=== PATIENT | female | born 1940 | race Caucasian/White ===

== ENCOUNTER → 2018-08-14 | Outpatient (CLI) | payer MEDICARE, OTHER | END | disposition home or self-care (01) | LOC: CFH 11:00 | PROVIDERS: ATTEND Nurse Practitioner Family | DX: R05 Cough (principal); R06.89 Other abnormalities of breathing; M47.814 Spondylosis without myelopathy or radiculopathy, thoracic region; I89.8 Other specified noninfective disorders of lymphatic vessels and lymph nodes | CPT/HCPCS: 71046 ==

== ENCOUNTER → 2018-09-19 | Outpatient (CLI) | payer MEDICARE, OTHER | END | disposition home or self-care (01) | LOC: CFH 09:55 | PROVIDERS: ATTEND Nurse Practitioner Family | DX: Z12.31 Encounter for screening mammogram for malignant neoplasm of breast (principal) | CPT/HCPCS: 77063; 77067 ==

== ENCOUNTER 2019-06-13 13:24 | Emergency (ER) | payer MEDICARE, OTHER ==
[~2019-06-13] VITALS: Ht 157.5 cm; Wt 86.0 kg
[2019-06-13 14:30] LABS: MICROSCOPIC INDICATED
[2019-06-13 14:31] LABS: CULTURE INDICATED? YES
--- NOTE | 2019-06-13 14:40 | NUR ---
UPON ARRIVAL TO ROOM, PT TO XRAY VIA JODI
--- NOTE | 2019-06-13 14:52 | NUR ---
PT SENT BY URGENT CARE: LOW BACK PAIN, LEFT LEG PAIN. UC CONSIDERING R/O DVT
[2019-06-13] MEDS ORDERED: KETOROLAC 30 MG/1 ML IM ONE (15:00)
[2019-06-13] MEDS ORDERED: KETOROLAC 30 MG/1 ML ONE (15:24)
[2019-06-13 15:31] VITALS: BP 152/95
--- NOTE | 2019-06-13 15:31 | NUR ---
MEDICATED NOTED ON JUL FOR BACK AND LEG PAIN. AWAITING ULTRASOUND RESULTS.
--- NOTE | 2019-06-13 16:43 | NUR ---
UOB TO BATHROOM. STEADY GAIT, BENT OVER. STATES NO IMPROVEMENT IN PAIN SINCE MEDICATED PER MAR
[2019-06-13] MEDS ORDERED: HYDROcodone/APAP 5/325 TABLET PO ONE (17:00)
[2019-06-13] MEDS ORDERED: HYDROcodone/APAP 5/325 TABLET ONE (17:16)
--- NOTE | 2019-06-13 17:36 | NUR ---
AFTER FURTHER MEDICATED FOR PAIN, GIVEN DISCHARGE AND TO DISCHARGE WINDOW WITH VIA W/C
== END 2019-06-13 17:39 | disposition home or self-care (01) ==
LOC: ED 14:21
DX: M54.42 Lumbago with sciatica, left side (principal); I10 Essential (primary) hypertension; M79.662 Pain in left lower leg
CPT/HCPCS: 72110; 81001; 87086; 93971; 96372; 99284; J1885

== ENCOUNTER 2019-07-04 09:17 | Outpatient (CLI) | payer MEDICARE, OTHER | END 2019-07-04 23:59 | disposition home or self-care (01) | LOC: CFH 09:17 | PROVIDERS: ATTEND Nurse Practitioner Family | DX: R09.89 Other specified symptoms and signs involving the circulatory and respiratory systems (principal) | CPT/HCPCS: 71046 ==

== ENCOUNTER → 2019-10-24 | Outpatient (CLI) | payer MEDICARE, OTHER | END | disposition home or self-care (01) | LOC: CFH 08:56 → EDSTATUS 09:30 | PROVIDERS: ATTEND Nurse Practitioner Family | DX: Z12.31 Encounter for screening mammogram for malignant neoplasm of breast (principal) | CPT/HCPCS: 77063; 77067 ==

== ENCOUNTER 2020-08-06 08:50 | Outpatient (CLI) | payer MEDICARE, OTHER | END 2020-08-06 23:59 | disposition home or self-care (01) | LOC: CFH 08:50 | PROVIDERS: ATTEND Nurse Practitioner Family | DX: M85.88 Other specified disorders of bone density and structure, other site (principal); M85.80 Other specified disorders of bone density and structure, unspecified site; N95.9 Unspecified menopausal and perimenopausal disorder | CPT/HCPCS: 77080 ==